=== PATIENT | female | born 1995 | race Caucasian/White ===

== ENCOUNTER 2018-10-19 07:47 | Emergency (ER) | payer BC, MEDICAID ==
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
[2018-10-19] MEDS ORDERED: TYLENOL 325 MG PO ONE (09:29)
[2018-10-19] MEDS ORDERED: TYLENOL 325 MG ONE (09:31)
[2018-10-19 09:37] VITALS: O2SAT 98
[2018-10-19 09:43] VITALS: BP 132/97; PULSE 82
== END 2018-10-19 09:39 | disposition home or self-care (01) ==
LOC: ED 07:47
DX: S40.011A Contusion of right shoulder, initial encounter (principal); S46.911A Strain of unspecified muscle, fascia and tendon at shoulder and upper arm level, right arm, initial encounter; V43.52XA Car driver injured in collision with other type car in traffic accident, initial encounter; Y99.9 Unspecified external cause status; M25.511 Pain in right shoulder
CPT/HCPCS: 73000; 73060; 99284; A9270-GY